=== PATIENT | female | born 1975 | race Caucasian/White ===

== ENCOUNTER → 2016-07-15 | Outpatient (CLI) | payer OTHER ==
[~2016-07-15] MED LIST: ALLERGY INJECTION IJ; AMOXICILLIN500 MG PO; ATARAX25 MG PO; AUGMENTIN 875 M1 TAB PO; BACTRIM DS 8001 TA1 PO; BENADRYL25 MG PO; BENADRYL50 MG PO; CELEXA10 MG PO; CIPRO500 MG PO; CIPRODEX 0.3%-7.5 ML OT; CLARITIN10 MG PO; CORDROL20 MG PO; CORTISPORIN 1%-10 M1 OT; DARVOCET N 1001 TAB PO; DAYPRO600 M1 PO; DELTASONE50 MG PO; EC NAPROSYN,NA500 MG PO; EPI-PEN1 MG/ML MR; FLEXERIL10 MG PO; GARLIC100 MG PO; HYDROCODONE BIT1 T11 PO; KEFLEX500 MG PO; LEVOFLOXACIN500 MG PO; MOTRIN600 MG PO; MOTRIN800 MG PO; NORCO 325 MG-51 TAB PO; PEN-VEE K500 MG PO; PREDNISONE10 MG PO; PREDNISONE20 M1 PO; PREMARIN V; PYRIDIUM200 M1 PO; PYRIDIUM200 MG PO; ROBAXIN750 MG PO; SUDAFED 12 HOU120 MG PO; SUDAFED 24 HOU240 MG PO; TENORMIN25 M1 PO; TESSALON PERLE100 M1 PO; TRAMADOL HCL50 MG PO; ULTRAM50 MG PO; VICODIN 5/500 505 MG PO; VICODIN1 TAB PO; VITAMIN D50000 I3 PO; XANAX0.25 MG PO; ZANTAC150 MG PO; ZITHROMAX250 MG PO; ZOFRAN4 MG PO; ZYRTEC-D 12HR 51 TER PO; ZYRTEC10 MG PO; Zofran4 MG PO; [UNRECOGNIZED DRUG - OTHER]
== END | disposition home or self-care (01) ==
LOC: CARD 13:51
DX: R55 Syncope and collapse (principal); R00.2 Palpitations; R07.9 Chest pain, unspecified

== ENCOUNTER 2016-09-12 09:09 | Emergency (ER) | payer OTHER ==
[~2016-09-12] VITALS: Wt 63.5 kg
[2016-09-12] MEDS ORDERED: [UNRECOGNIZED DRUG - REMARK] (09:30)
[2016-09-12] MEDS ORDERED: LOPRESSOR25 MG PO (09:40)
[2016-09-12 09:51] LABS: BASO % 0.6 % (0.0-1.0); EOS # 0.3 10*3/uL (0.0-0.4); EOS % 3.5 % (1.0-4.0); HEMATOCRIT 42.9 % (37.0-47.0); HEMOGLOBIN 14.3 g/dl (12.0-16.0); LYMPH # 3.1 10*3/uL (1.3-4.4); LYMPH % 44.4 % (27.0-41.0); MEAN CELL VOLUME 89.4 fl (81.0-99.0); MEAN CORPUSCULAR HGB 29.8 pg (27.0-31.0); MEAN CORPUSCULAR HGB CONC 33.3 g/dl (33.0-37.0); MEAN PLATELET VOLUME 10.6 fl (9.6-12.3); MONO # 0.6 10*3/uL (0.1-1.0); MONO % 8.6 % (3.0-9.0); NEUT % 42.8 % (47.0-73.0); PLATELET COUNT AUTOMATED 238 10*3/uL (130-400); RED CELL DISTRI WIDTH 13.8 % (0-14.5); WHITE BLOOD COUNT 7.1 10*3/uL (4.8-10.8)
[2016-09-12 10:00] LABS: INTERNATIONAL NORM RATIO 0.9 (2.0-3.5)
[2016-09-12 10:09] LABS: ALBUMIN 3.8 gm/dl (3.1-4.5); ALKALINE PHOSPHATASE 185 U/L (45-117); BILIRUBIN, TOTAL 0.3 mg/dl (0.2-1.0); BUN 14 mg/dl (7-24); CARBON DIOXIDE 27 mmol/L (21-32); CHLORIDE 108 mmol/L (98-107); EST GLOM FILT AFRICAN AMERICAN > 60 ml/min; GLUCOSE 95 mg/dL (65-99); MAGNESIUM 2.1 mg/dL (1.5-2.1); POTASSIUM 4.3 mmol/L (3.5-5.1); SGOT/AST 15 IU/L (3-35); SGPT/ALT 19 U/L (12-78); SODIUM 144 mmol/L (136-145); TOTAL PROTEIN 7.6 gm/dL (6.4-8.2)
[2016-09-12 10:23] LABS: TROPONIN I < 0.015 ng/ml (<0.045)
[2016-09-12 10:27] VITALS: BP 124/60
== END 2016-09-12 11:39 | disposition left against medical advice (07) ==
LOC: ED 09:09
PROVIDERS: Emergency Medicine
DX: R07.9 Chest pain, unspecified (principal); R55 Syncope and collapse; Z88.0 Allergy status to penicillin; Z88.6 Allergy status to analgesic agent; Z91.018 Allergy to other foods; Z90.49 Acquired absence of other specified parts of digestive tract

== ENCOUNTER 2016-12-09 23:06 | Emergency (ER) | payer BC, OTHER ==
[~2016-12-09] VITALS: Ht 157.4 cm; Wt 67.1 kg
[~2016-12-09 23:06] MED LIST changes: +LOPRESSOR25 MG PO; +[UNRECOGNIZED DRUG - REMARK]
[2016-12-09 23:13] VITALS: BP 137/67
[2016-12-10] MEDS ORDERED: ZITHROMAX250 MG PO (00:40)
== END 2016-12-10 00:53 | disposition home or self-care (01) ==
LOC: ED 23:06
DX: J06.9 Acute upper respiratory infection, unspecified (principal); B97.89 Other viral agents as the cause of diseases classified elsewhere; F17.200 Nicotine dependence, unspecified, uncomplicated; Z88.0 Allergy status to penicillin; Z88.6 Allergy status to analgesic agent; Z91.018 Allergy to other foods; Z88.8 Allergy status to other drugs, medicaments and biological substances; Z79.899 Other long term (current) drug therapy

== ENCOUNTER 2017-02-20 12:42 | Emergency (ER) | payer BC ==
[~2017-02-20] VITALS: Ht 157.4 cm; Wt 65.8 kg
[2017-02-20 13:01] VITALS: BP 108/56
== END 2017-02-20 13:40 | disposition home or self-care (01) ==
LOC: ED 12:42
DX: S93.402A Sprain of unspecified ligament of left ankle, initial encounter (principal); F17.200 Nicotine dependence, unspecified, uncomplicated; Z98.890 Other specified postprocedural states; Z90.710 Acquired absence of both cervix and uterus; Z79.899 Other long term (current) drug therapy; Z88.8 Allergy status to other drugs, medicaments and biological substances; Z88.6 Allergy status to analgesic agent; Z88.5 Allergy status to narcotic agent; Z88.0 Allergy status to penicillin; Z91.018 Allergy to other foods; X50.1XXA Overexertion from prolonged static or awkward postures, initial encounter; Y93.89 Activity, other specified; Y92.89 Other specified places as the place of occurrence of the external cause; Y99.9 Unspecified external cause status

== ENCOUNTER 2017-03-09 16:34 | Emergency (ER) | payer BC ==
[~2017-03-09] VITALS: Ht 157.4 cm; Wt 68.0 kg
[2017-03-09 16:39] VITALS: BP 135/75
[2017-03-09 17:21] LABS: BASO % 0.5 % (0.0-1.0); EOS # 0.3 10*3/uL (0.0-0.4); EOS % 2.9 % (1.0-4.0); HEMATOCRIT 41.1 % (37.0-47.0); HEMOGLOBIN 14.2 g/dl (12.0-16.0); LYMPH # 4.4 10*3/uL (1.3-4.4); LYMPH % 50.1 % (27.0-41.0); MEAN CELL VOLUME 91.3 fl (81.0-99.0); MEAN CORPUSCULAR HGB 31.6 pg (27.0-31.0); MEAN CORPUSCULAR HGB CONC 34.5 g/dl (33.0-37.0); MEAN PLATELET VOLUME 10.6 fl (9.6-12.3); MONO # 0.6 10*3/uL (0.1-1.0); MONO % 6.8 % (3.0-9.0); NEUT # 3.5 10*3/uL (2.3-7.9); NEUT % 39.5 % (47.0-73.0); PLATELET COUNT AUTOMATED 252 10*3/uL (130-400); RED CELL DISTRI WIDTH 13.4 % (0-14.5); WHITE BLOOD COUNT 8.9 10*3/uL (4.8-10.8)
[2017-03-09 17:24] LABS: INTERNATIONAL NORM RATIO 0.9 (2.0-3.5)
[2017-03-09 17:34] LABS: ALBUMIN 3.9 gm/dl (3.1-4.5); ALKALINE PHOSPHATASE 185 U/L (45-117); BUN 19 mg/dl (7-24); CHLORIDE 103 mmol/L (98-107); CREATININE 0.91 mg/dL (0.55-1.02); POTASSIUM 4.1 mmol/L (3.5-5.1); SGOT/AST 12 IU/L (3-35); SGPT/ALT 27 U/L (12-78); SODIUM 142 mmol/L (136-145); TOTAL PROTEIN 7.7 gm/dL (6.4-8.2)
[2017-03-09] MEDS ORDERED: OMNICEF300 MG PO (19:36)
[2017-03-09] MEDS ORDERED: FLONASE ALLERG9.9 ML NAS (19:36)
== END 2017-03-09 19:38 | disposition home or self-care (01) ==
LOC: ED 16:34
PROVIDERS: Nurse Practitioner Family
DX: J32.0 Chronic maxillary sinusitis (principal); F17.200 Nicotine dependence, unspecified, uncomplicated; Z88.0 Allergy status to penicillin; Z91.018 Allergy to other foods; Z88.8 Allergy status to other drugs, medicaments and biological substances; Z79.899 Other long term (current) drug therapy

== ENCOUNTER 2017-03-24 05:27 | Emergency (ER) | payer BC ==
[~2017-03-24] VITALS: Ht 157.4 cm; Wt 68.0 kg
[~2017-03-24 05:27] MED LIST changes: +FLONASE ALLERG9.9 ML NAS; +OMNICEF300 MG PO
[2017-03-24 05:33] VITALS: BP 123/72
[2017-03-24] MEDS ORDERED: SEPTDS PO (06:27)
[2017-03-24] MEDS ORDERED: Meclizine25 MG PO (06:34)
[2017-03-24] MEDS ORDERED: Zofran4 MG SL (06:34)
== END 2017-03-24 06:52 | disposition home or self-care (01) ==
LOC: ED 05:27
DX: L98.9 Disorder of the skin and subcutaneous tissue, unspecified (principal); F17.200 Nicotine dependence, unspecified, uncomplicated; Z88.0 Allergy status to penicillin; Z91.018 Allergy to other foods; Z88.6 Allergy status to analgesic agent; Z88.8 Allergy status to other drugs, medicaments and biological substances

== ENCOUNTER 2017-06-20 22:21 | Emergency (ER) | payer OTHER ==
[~2017-06-20] VITALS: Wt 68.0 kg
[~2017-06-20 22:21] MED LIST changes: +Meclizine25 MG PO; +SEPTDS PO; +Zofran4 MG SL
[2017-06-20 22:24] VITALS: BP 143/80
[2017-06-20] MEDS ORDERED: PREDNISONE20 M1 PO (23:49)
== END 2017-06-20 23:59 | disposition home or self-care (01) ==
LOC: ED 22:21
DX: M54.12 Radiculopathy, cervical region (principal); F41.9 Anxiety disorder, unspecified; F32.9 Major depressive disorder, single episode, unspecified; F17.200 Nicotine dependence, unspecified, uncomplicated; Z88.0 Allergy status to penicillin; Z88.8 Allergy status to other drugs, medicaments and biological substances; Z91.018 Allergy to other foods; Z79.899 Other long term (current) drug therapy

== ENCOUNTER 2017-09-02 10:09 | Emergency (ER) | payer OTHER ==
[~2017-09-02] VITALS: Wt 68.0 kg
[2017-09-02 10:12] VITALS: BP 132/66
[2017-09-02 10:35] LABS: BILIRUBIN NEGATIVE (NEGATIVE); BLOOD NEGATIVE (NEGATIVE); CLARITY SL CLOUDY (CLEAR); COLOR YELLOW (YELLOW); GLUCOSE NEGATIVE (NEGATIVE); KETONE NEGATIVE (NEGATIVE); LEUKO ESTERASE NEGATIVE (NEGATIVE); NITRITE NEGATIVE (NEGATIVE); UROBILINOGEN 0.2 E.U./dl (0.2-1.0)
[2017-09-02 10:46] LABS: BACTERIA 1+; WBC 0-2 wbc/hpf (0-5)
[2017-09-02] MEDS ORDERED: ROBAXIN500 M1 PO (12:36)
[2017-09-02] MEDS ORDERED: PREDNISONE20 M1 PO (12:36)
== END 2017-09-02 13:03 | disposition home or self-care (01) ==
LOC: ED 10:09
PROVIDERS: Physician Assistant
DX: S33.5XXA Sprain of ligaments of lumbar spine, initial encounter (principal); Z98.890 Other specified postprocedural states; Z98.51 Tubal ligation status; Z90.710 Acquired absence of both cervix and uterus; Z90.49 Acquired absence of other specified parts of digestive tract; Z88.4 Allergy status to anesthetic agent; Z88.5 Allergy status to narcotic agent; Z88.8 Allergy status to other drugs, medicaments and biological substances; Z88.0 Allergy status to penicillin; Z87.442 Personal history of urinary calculi; X50.0XXA Overexertion from strenuous movement or load, initial encounter; Y93.89 Activity, other specified; Y92.69 Other specified industrial and construction area as the place of occurrence of the external cause; Y99.9 Unspecified external cause status

== ENCOUNTER 2018-04-09 01:04 | Emergency (ER) | payer OTHER ==
[~2018-04-09] VITALS: Ht 157.4 cm; Wt 69.9 kg
[~2018-04-09 01:04] MED LIST changes: +ROBAXIN500 M1 PO
[2018-04-09 01:46] LABS: BILIRUBIN NEGATIVE (NEGATIVE); BLOOD NEGATIVE (NEGATIVE); CLARITY CLEAR (CLEAR); COLOR YELLOW (YELLOW); GLUCOSE NEGATIVE (NEGATIVE); KETONE NEGATIVE (NEGATIVE); LEUKO ESTERASE NEGATIVE (NEGATIVE); NITRITE NEGATIVE (NEGATIVE); PH 7.5 (5.0-9.0); SPECIFIC GRAVITY 1.015 (1.005-1.030); UROBILINOGEN 0.2 E.U./dl (0.2-1.0)
[2018-04-09 01:48] LABS: BASO % 0.4 % (0.0-1.0); EOS % 0.5 % (1.0-4.0); HEMATOCRIT 44.5 % (37.0-47.0); HEMOGLOBIN 14.9 g/dl (12.0-16.0); LYMPH # 1.9 10*3/uL (1.3-4.4); LYMPH % 24.5 % (27.0-41.0); MEAN CELL VOLUME 91.2 fl (81.0-99.0); MEAN CORPUSCULAR HGB 30.5 pg (27.0-31.0); MEAN CORPUSCULAR HGB CONC 33.5 g/dl (33.0-37.0); MEAN PLATELET VOLUME 10.4 fl (9.6-12.3); MONO # 0.6 10*3/uL (0.1-1.0); NEUT # 5.3 10*3/uL (2.3-7.9); NEUT % 67.3 % (47.0-73.0); PLATELET COUNT AUTOMATED 216 10*3/uL (130-400); RED BLOOD COUNT 4.88 10*6/uL (4.10-5.10); RED CELL DISTRI WIDTH 13.2 % (0-14.5); WHITE BLOOD COUNT 7.9 10*3/uL (4.8-10.8)
[2018-04-09 02:09] LABS: ALBUMIN 3.7 gm/dl (3.1-4.5); ALKALINE PHOSPHATASE 159 U/L (45-117); BUN 14 mg/dl (7-24); CHLORIDE 106 mmol/L (98-107); CREATININE 0.84 mg/dL (0.55-1.02); LIPASE 69 U/L (73-393); POTASSIUM 3.6 mmol/L (3.5-5.1); SGOT/AST 43 IU/L (3-35); SGPT/ALT 76 U/L (12-78); SODIUM 140 mmol/L (136-145); TOTAL PROTEIN 7.5 gm/dL (6.4-8.2)
[2018-04-09 02:13] LABS: EPITHELIAL CELLS 35-40; RBC 0-2 rbc/hpf (0-2); WBC 0-2 wbc/hpf (0-5)
[2018-04-09 02:45] VITALS: BP 103/60
[2018-04-09] MEDS ORDERED: DICYCLOMINE HCL20 MG PO (03:51)
[2018-04-09] MEDS ORDERED: Ondansetron4 MG PO (03:51)
== END 2018-04-09 04:28 | disposition home or self-care (01) ==
LOC: ED 01:04
PROVIDERS: Emergency Medicine
DX: K52.9 Noninfective gastroenteritis and colitis, unspecified (principal); F17.200 Nicotine dependence, unspecified, uncomplicated; Z90.710 Acquired absence of both cervix and uterus; Z90.49 Acquired absence of other specified parts of digestive tract; Z88.6 Allergy status to analgesic agent; Z88.0 Allergy status to penicillin; Z91.018 Allergy to other foods; Z88.8 Allergy status to other drugs, medicaments and biological substances

== ENCOUNTER → 2019-03-14 | Outpatient (CLI) | payer OTHER ==
[~2019-03-14] MED LIST changes: +DICYCLOMINE HCL20 MG PO; +Ondansetron4 MG PO
== END | disposition home or self-care (01) ==
LOC: RAD 17:33
DX: M16.0 Bilateral primary osteoarthritis of hip (principal); M47.817 Spondylosis without myelopathy or radiculopathy, lumbosacral region

== ENCOUNTER 2019-09-05 16:19 | Emergency (ER) | payer OTHER ==
[~2019-09-05] VITALS: Ht 157.4 cm; Wt 68.9 kg
[2019-09-05 16:25] VITALS: BP 136/79
[2019-09-05] MEDS ORDERED: ZITHROMAX250 MG PO (16:59)
== END 2019-09-05 17:25 | disposition home or self-care (01) ==
LOC: ED 16:19
DX: J01.90 Acute sinusitis, unspecified (principal); J45.909 Unspecified asthma, uncomplicated; F41.9 Anxiety disorder, unspecified; Z88.0 Allergy status to penicillin; Z88.8 Allergy status to other drugs, medicaments and biological substances; Z91.018 Allergy to other foods; Z79.899 Other long term (current) drug therapy

== ENCOUNTER 2020-03-23 19:13 | Emergency (ER) | payer OTHER ==
[~2020-03-23] VITALS: Ht 157.4 cm; Wt 68.0 kg
[2020-03-23 19:19] VITALS: BP 129/79
[2020-03-23] MEDS ORDERED: FLAGYL500 MG PO ×2 (19:34)
[2020-03-23] MEDS ORDERED: ANTIBIOTIC28.4 GM T (19:34)
[2020-03-23] MEDS ORDERED: DOXYCYCLINE100 M3 PO ×2 (19:34)
== END 2020-03-23 20:05 | disposition home or self-care (01) ==
LOC: ED 19:13
DX: S61.452A Open bite of left hand, initial encounter (principal); E11.9 Type 2 diabetes mellitus without complications; Z88.8 Allergy status to other drugs, medicaments and biological substances; Z88.6 Allergy status to analgesic agent; Z88.0 Allergy status to penicillin; Z88.4 Allergy status to anesthetic agent; Z91.018 Allergy to other foods; Z79.2 Long term (current) use of antibiotics; Z79.899 Other long term (current) drug therapy; Z98.890 Other specified postprocedural states; Z90.711 Acquired absence of uterus with remaining cervical stump; Z90.49 Acquired absence of other specified parts of digestive tract; W54.0XXA Bitten by dog, initial encounter; Y93.89 Activity, other specified; Y92.89 Other specified places as the place of occurrence of the external cause; Y99.8 Other external cause status

== ENCOUNTER 2020-03-25 07:20 | Inpatient (IN) | payer OTHER ==
[~2020-03-25] VITALS: Ht 157.4 cm; Wt 68.5 kg
[~2020-03-25 07:20] MED LIST changes: +ANTIBIOTIC28.4 GM T; +DOXYCYCLINE100 M3 PO; +FLAGYL500 MG PO
[2020-03-25 08:04] VITALS: BP 121/83
--- NOTE | 2020-03-25 09:01 | NUR ---
CHECKED ON PT, PT WAS TEARFUL.
[2020-03-25 09:05] LABS: BASO # 0.1 10*3/uL (0.0-0.1); BASO % 0.5 % (0.0-1.0); EOS # 0.2 10*3/uL (0.0-0.4); EOS % 1.4 % (1.0-4.0); HEMATOCRIT 44.4 % (37.0-47.0); LYMPH # 2.9 10*3/uL (1.3-4.4); LYMPH % 27.2 % (27.0-41.0); MEAN CELL VOLUME 93.1 fl (81.0-99.0); MEAN CORPUSCULAR HGB 30.6 pg (27.0-31.0); MEAN CORPUSCULAR HGB CONC 32.9 g/dl (33.0-37.0); MEAN PLATELET VOLUME 10.2 fl (9.6-12.3); MONO # 0.9 10*3/uL (0.1-1.0); MONO % 8.1 % (3.0-9.0); NEUT # 6.7 10*3/uL (2.3-7.9); NEUT % 62.6 % (47.0-73.0); PLATELET COUNT AUTOMATED 262 10*3/uL (130-400); RED BLOOD COUNT 4.77 10*6/uL (4.10-5.10); RED CELL DISTRI WIDTH 13.2 % (0-14.5); WHITE BLOOD COUNT 10.6 10*3/uL (4.8-10.8)
[2020-03-25 09:16] LABS: INTERNATIONAL NORM RATIO 0.9 (2.0-3.5)
[2020-03-25 09:21] LABS: ALKALINE PHOSPHATASE 130 U/L (45-117); BUN 14 mg/dl (7-24); CHLORIDE 106 mmol/L (98-107); CREATININE 0.83 mg/dL (0.55-1.02); POTASSIUM 4.1 mmol/L (3.5-5.1); SGOT/AST 13 IU/L (3-35); SGPT/ALT 31 U/L (12-78); SODIUM 138 mmol/L (136-145); TOTAL PROTEIN 8.4 gm/dL (6.4-8.2)
[2020-03-25 14:50] VITALS: BP 107/53
--- NOTE | 2020-03-25 14:50 | NUR ---
Time: 1449 A 44 year old FEMALE admitted to 5E under services of MELANIE SIMEON DO. Pt. arrived via wheel chair from ER. Chief complaint: DOG BITE L HAND. RIGO HURST
[2020-03-25] MEDS ORDERED: MAGNESIUM500 MG PO (15:52)
[2020-03-25] MEDS ORDERED: FOLIXAPURE5000 UNIT PO (15:54)
[2020-03-25] MEDS ORDERED: EAC PO (15:55)
[2020-03-25 20:00] VITALS: BP 104/57
--- NOTE | 2020-03-25 20:16 | NUR ---
LEFT HAND PAIN RATED "5-6" PER PT. NORCO GIVEN ORDERED.
--- NOTE | 2020-03-25 21:15 | NUR ---
NORCO EFFECTIVE FOR PAIN PER PT.
[2020-03-26] VITALS: BP 101/52
--- NOTE | 2020-03-26 03:51 | NUR ---
24 HR chart check completed.
--- NOTE | 2020-03-26 06:30 | NUR ---
DENIED NEED FOR PAIN MEDICATION THIS AM AND ALSO LEFT HAND DECREASED SWELLING NOTED.
[2020-03-26 06:31] LABS: BASO % 0.4 % (0.0-1.0); EOS # 0.3 10*3/uL (0.0-0.4); EOS % 3.5 % (1.0-4.0); HEMATOCRIT 41.3 % (37.0-47.0); LYMPH # 2.4 10*3/uL (1.3-4.4); LYMPH % 31.3 % (27.0-41.0); MEAN CELL VOLUME 93.7 fl (81.0-99.0); MEAN CORPUSCULAR HGB 30.8 pg (27.0-31.0); MEAN CORPUSCULAR HGB CONC 32.9 g/dl (33.0-37.0); MEAN PLATELET VOLUME 10.5 fl (9.6-12.3); MONO # 0.6 10*3/uL (0.1-1.0); MONO % 8.4 % (3.0-9.0); NEUT # 4.2 10*3/uL (2.3-7.9); PLATELET COUNT AUTOMATED 236 10*3/uL (130-400); RED BLOOD COUNT 4.41 10*6/uL (4.10-5.10); RED CELL DISTRI WIDTH 13.2 % (0-14.5); WHITE BLOOD COUNT 7.5 10*3/uL (4.8-10.8)
[2020-03-26 07:00] LABS: ALBUMIN 3.3 gm/dl (3.1-4.5); BUN 14 mg/dl (7-24); CHLORIDE 108 mmol/L (98-107); CREATININE 0.85 mg/dL (0.55-1.02); POTASSIUM 4.3 mmol/L (3.5-5.1); SGOT/AST 52 IU/L (3-35); SGPT/ALT 88 U/L (12-78); SODIUM 139 mmol/L (136-145); TOTAL PROTEIN 7.3 gm/dL (6.4-8.2)
[2020-03-26 07:06] LABS: ALKALINE PHOSPHATASE 119 U/L (45-117); FREE T4 1.03 ng/dl (0.76-1.46)
[2020-03-26 07:19] LABS: VITAMIN D, 25-HYDROXY 58.1 ng/mL (30-100)
[2020-03-26 08:00] VITALS: BP 101/51
--- NOTE | 2020-03-26 08:30 | NUR ---
Discharge Plannerin to talk to patient this morning in Room 506-2 Patient states that she lives at Home with her There are 10 steps in the home. Physician: Dayan Brady [facility]: [facility] Home health services: None at this time Patient's level of ADLs: Independent with No needs Patient has working utilities: Yes all are working DME: None Follow-up physician's appointment after d/c: Per Hospitalist Nurse Director Does patient want to access PORTAL?: Declines Discharge plan discussed with Pt. Pt. states that she will return home at discharge. She is independent in her Care. She lives with her and at this time there are No Home Needs. Pt. is receptive to Home Health if Ordered with No Preference for Home Health Provider. Case management will Follow. LYNDON BUTLER LPN
[2020-03-26 12:00] VITALS: BP 106/76
--- NOTE | 2020-03-26 14:41 | NUR ---
Nutritional Support Services Note: Appetite is good for meals. She is eating 100% of all meals. She receives an 1800cal diet sec to dx of DM. She has a dog bite to left hand with cellulitis noted. No nutrition intervention needed at this time. Will follow if needed. Dottie Yoo Rdn LD
[2020-03-26 16:00] VITALS: BP 124/74
[2020-03-26 20:00] VITALS: BP 118/67
--- NOTE | 2020-03-26 22:00 | NUR ---
DENIES NEED FOR PAIN MEDICATION.
[2020-03-27] VITALS: BP 107/71
--- NOTE | 2020-03-27 05:15 | NUR ---
24 HR chart check completed.
[2020-03-27 08:00] VITALS: BP 122/64
--- NOTE | 2020-03-27 08:00 | NUR ---
PATIENT RESTING QUIETLY IN BED. NO DISTRESS NOTED. RESPIRATIONS EASY, REGULAR. POX 100% VIA RA. LEFT HAND ELEVATED AT THIS TIME. DENIES ANY PAIN/DISCOMFORT. CALL LIGHT WITHIN REACH. SEE SHIFT ASSESSMENT.
--- NOTE | 2020-03-27 09:00 | NUR ---
patient will return home when discharged, denies any home needs
[2020-03-27] MEDS ORDERED: LEVOFLOXACIN500 MG PO (10:44)
[2020-03-27] MEDS ORDERED: DOXYCYCLINE100 M3 PO (10:44)
[2020-03-27] MEDS ORDERED: CLINDAMYCIN HC300 MG PO (10:44)
--- NOTE | 2020-03-27 11:32 | NUR ---
Discharge instructions reviewed with patient/family. Patient receptive and verbalizes understanding. Follow-up care arranged. Written instructions given to patient/family. KARLO ABREU.
== END 2020-03-27 11:32 | disposition home or self-care (01) | DRG 603 ==
LOC: ED 07:20 → 5E 09:23 → EDHOLD 09:23 → 5E 14:36
PROVIDERS: Emergency Medicine; Internal Medicine; ADMIT Student in an Organized Health Care Education/Training Program; ATTEND Student in an Organized Health Care Education/Training Program
DX: L03.114 Cellulitis of left upper limb (principal); I48.92 Unspecified atrial flutter; E11.65 Type 2 diabetes mellitus with hyperglycemia; I49.8 Other specified cardiac arrhythmias; R00.0 Tachycardia, unspecified; F41.8 Other specified anxiety disorders; R74.8 Abnormal levels of other serum enzymes; F17.210 Nicotine dependence, cigarettes, uncomplicated; Z71.6 Tobacco abuse counseling; Z88.8 Allergy status to other drugs, medicaments and biological substances; Z88.6 Allergy status to analgesic agent; Z88.0 Allergy status to penicillin; Z88.4 Allergy status to anesthetic agent; Z91.018 Allergy to other foods; Z87.01 Personal history of pneumonia (recurrent); Z87.440 Personal history of urinary (tract) infections; Z90.49 Acquired absence of other specified parts of digestive tract; Z90.710 Acquired absence of both cervix and uterus; Z90.721 Acquired absence of ovaries, unilateral; Z82.49 Family history of ischemic heart disease and other diseases of the circulatory system; Z83.3 Family history of diabetes mellitus; Z80.8 Family history of malignant neoplasm of other organs or systems; Z79.52 Long term (current) use of systemic steroids; W54.0XXA Bitten by dog, initial encounter; Y93.89 Activity, other specified; Y92.89 Other specified places as the place of occurrence of the external cause; Y99.8 Other external cause status

== ENCOUNTER → 2021-05-30 | Outpatient (CLI) | payer OTHER ==
[~2021-05-30] MED LIST changes: +CLINDAMYCIN HC300 MG PO; +EAC PO; +FOLIXAPURE5000 UNIT PO; +MAGNESIUM500 MG PO
== END | disposition home or self-care (01) ==
LOC: RAD 13:59
PROVIDERS: ATTEND Family Medicine
DX: M25.551 Pain in right hip (principal)

== ENCOUNTER → 2021-06-18 | Outpatient (CLI) | payer OTHER | END | disposition home or self-care (01) | LOC: MAMMO 15:34 | PROVIDERS: ATTEND Family Medicine | DX: Z12.31 Encounter for screening mammogram for malignant neoplasm of breast (principal) ==

== ENCOUNTER → 2023-05-14 | Outpatient (CLI) | payer OTHER | END | disposition home or self-care (01) | LOC: MAMMO 08:44 | PROVIDERS: ATTEND Family Medicine | DX: R92.30 Dense breasts, unspecified (principal); N64.4 Mastodynia ==

== ENCOUNTER → 2023-09-29 | Outpatient (CLI) | payer OTHER ==
[2023-09-29 10:17] LABS: BASO # 0.1 10*3/uL (0.0-0.1); BASO % 0.7 % (0.0-1.0); EOS # 0.4 10*3/uL (0.0-0.4); EOS % 4.9 % (1.0-4.0); HEMATOCRIT 42.5 % (37.0-47.0); LYMPH # 3.9 10*3/uL (1.3-4.4); LYMPH % 43.5 % (27.0-41.0); MEAN CELL VOLUME 94.4 fl (81.0-99.0); MEAN CORPUSCULAR HGB 30.9 pg (27.0-31.0); MEAN CORPUSCULAR HGB CONC 32.7 g/dl (33.0-37.0); MEAN PLATELET VOLUME 9.9 fl (9.6-12.3); MONO # 0.7 10*3/uL (0.1-1.0); MONO % 7.6 % (3.0-9.0); NEUT # 3.9 10*3/uL (2.3-7.9); NEUT % 42.9 % (47.0-73.0); PLATELET COUNT AUTOMATED 242 10*3/uL (130-400); RED CELL DISTRI WIDTH 13.3 % (0-14.5); WHITE BLOOD COUNT 9.1 10*3/uL (4.8-10.8)
[2023-09-29 10:54] LABS: ALKALINE PHOSPHATASE 120 U/L (46-116); BUN 12 mg/dl (9-23); CHLORIDE 111 mmol/L (98-107); CHOLESTEROL 238 mg/dL (<200); FREE T4 1.16 ng/dl (0.89-1.76); LDL CHOLESTEROL 109 mg/dL (9-159); SGPT/ALT 25 U/L (5-49); TOTAL PROTEIN 7.3 gm/dL (6.0-8.0); TRIGLYCERIDES 323 mg/dl (<150)
[2023-09-30 04:06] LABS: THYROID PEROXIDASE (TPO) AB <9 IU/mL (0-34)
[2023-09-30 16:09] LABS: THYROGLOBULIN ANTIBODY <1.0 IU/mL (0.0-0.9)
[2023-10-01 08:09] LABS: THYROID STIM IMMUNOGLOBULIN <0.10 IU/L (0.00-0.55)
== END | disposition home or self-care (01) ==
LOC: LAB 09:57
PROVIDERS: ATTEND Internal Medicine
DX: E11.9 Type 2 diabetes mellitus without complications (principal); E78.2 Mixed hyperlipidemia; E05.90 Thyrotoxicosis, unspecified without thyrotoxic crisis or storm; R00.2 Palpitations